=== PATIENT | female | born 1940 | race Caucasian/White ===

== ENCOUNTER 2016-08-11 06:00 | Day surgery (SDC) | payer OTHER ==
[2016-08-11] MEDS ORDERED: ceFAZolin 1 GM VIAL ONE (06:02)
[2016-08-11] MEDS ORDERED: LIDOCAINE W/ SODIUM BICARB 0.5 ML SYR ONE (06:02)
[2016-08-11] MEDS ORDERED: Sodium Chloride 0.9% 0 ML IV ONE (06:03)
[2016-08-11] MEDS ORDERED: Lactated Ringers 1,000 ML PRIMARY IV ONE ×2 (06:03→09:37)
[2016-08-11] MEDS ORDERED: MEPIVACAINE HCL/PF 20 MG/1 ML IV ONE (07:14)
[2016-08-11] MEDS ORDERED: BUPIVACAINE 0.5% W/EPI MPF -30 ML VIAL IV ONE (07:14)
[2016-08-11] MEDS ORDERED: MIDAZOLAM 5 MG/1 ML ONE (07:15)
[2016-08-11] MEDS ORDERED: fentaNYL Inj 250 MCG/5 ML VIAL ONE (07:15)
[2016-08-11] MEDS ORDERED: ceFAZolin Inj 2gm (Premix) 50 ML IV ONE (07:33)
[2016-08-11] MEDS ORDERED: KETAMINE 100 MG/1 ML - 5 ML ONE (07:35)
[2016-08-11] MEDS ORDERED: ROCURONIUM 10 MG/1 ML - 5 ML VIAL IVP ONE (07:35)
[2016-08-11] MEDS ORDERED: BUPIVACAINE 0.25% W/ EPI - 10 ML VIAL ONE (08:22)
[2016-08-11] MEDS ORDERED: ePHEDrine Inj 50 MG/ML AMP ONE (08:28)
[2016-08-11] MEDS ORDERED: DEXAMETHASONE PF 10 MG/1 ML VIAL ONE (09:42)
[2016-08-11] MEDS ORDERED: ONDANSETRON 4 MG/2 ML VIAL ONE (09:50)
[2016-08-11] MEDS ORDERED: ACETAMINOPHEN 325 MG TABLET PO PRN (10:10)
[2016-08-11] MEDS ORDERED: MORPHINE SULFATE 2 MG/1 ML IVP PRN (10:10)
[2016-08-11] MEDS ORDERED: Prochlorperazine Tab 10 MG TAB PO PRN (10:10)
[2016-08-11] MEDS ORDERED: BISACODYL 5 MG TABLET PO PRN (10:10)
[2016-08-11] MEDS ORDERED: CALCIUM CARBONATE 500 MG (TUMS) CHEWABLE TABLET PO PRN (10:10)
[2016-08-11] MEDS ORDERED: Ondansetron ODT Tab 8 MG TAB PO PRN (10:10)
[2016-08-11] MEDS ORDERED: IBUPROFEN 400 MG TABLET PO PRN (10:10)
[2016-08-11] MEDS ORDERED: MAG HYDROX/AL HYDROX/SIMETH 30 ML SUSP PO PRN (10:10)
[2016-08-11] MEDS ORDERED: diphenhydrAMINE 25 MG CAPSULE PO PRN (10:10)
[2016-08-11] MEDS ORDERED: HYDROcodone-APAP 5 MG -325 MG TABLET PO PRN (10:10)
[2016-08-11] MEDS ORDERED: BISACODYL 10 MG SUPPOSITORY RECTAL PRN (10:10)
[2016-08-11] MEDS ORDERED: ONDANSETRON 4 MG/2 ML VIAL IVP PRN (10:10)
[2016-08-11] MEDS ORDERED: NORMAL SALINE 10 ML SYRINGE FLUSH IVP PRN (10:10)
[2016-08-11] MEDS ORDERED: KETOROLAC 15 MG/1 ML VIAL IVP PRN (10:10)
[2016-08-11] MEDS ORDERED: Lactated Ringers 1,000 ML PRIMARY IV SCH (10:15)
--- NOTE | 2016-08-11 11:00 | CRNA.PROCE ---
Nerve Block Documentation - - Safety Measures: Time Out Taken, Site Verified - - Type of Nerve Block Used: Left Interscalene Block (Analgesia block for Humerus ORIF.) Position for Nerve Block: Supine Moniters Used During Block: EKG, SPO2, NIBP Oxygen Sumpplented: Yes Sedation Used - Enter Amount in Comment Field: Midazolam (mg): Yes (2 ), Fentanyl (mcg): Yes (75) Skin Prep Used: ChloroPrep (Twice) Draped: No Technique: Nerve Stimulator Nerve Block Needle Used: 40 mm ProBlk II Stimulation Hz: 1 Stimulation Staring mA: 1.8 Stimulation Ending mA: 0.6 Local Anesthetic - Enter Amt in Comment Field: 0.5 % Bupivicaine with Epinephrine 1:200,000 (mL): Yes (20 ml in 3 ml increments), 2 % Mepivacaine (mL) : Yes (10 ml in 3 ml increments)
[2016-08-11] MEDS ORDERED: HYDROcodone-APAP 5 MG -325 MG TABLET PO ONE (11:17)
[2016-08-11 13:58] VITALS: RESP 24; TEMP 96.9
--- NOTE | 2016-08-12 14:25 | OPS SHOULD ---
Diagnosis : Left Humeral Head Fracture Referral Reason: Instruction in Activities of Daily Living/Shoulder Cryo Cuff O: The patient was instructed in activities of daily living including dressing and bathing, as well as shoulder do's and don'ts. The patient was issued a cryo cuff for the left shoulder and instructed in its proper use and care. P: No further therapy is indicated at this time. The patient will begin outpatient physical therapy. VIANEY
== END 2016-08-11 13:36 | disposition home or self-care (01) ==
LOC: SDSC 06:00
PROVIDERS: ATTEND Orthopaedic Surgery Sports Medicine
DX: S42.232A 3-part fracture of surgical neck of left humerus, initial encounter for closed fracture (principal); E03.9 Hypothyroidism, unspecified; J84.10 Pulmonary fibrosis, unspecified
CPT/HCPCS: 23615; 76001; 94150; 97535; J0690; J2704; J3010; S0020; 01630; 64415; J0670; J1100; J2250; J2405; J7050; J7120